=== PATIENT | female | born 1995 | race Caucasian/White ===

== ENCOUNTER 2018-10-11 10:00 | Emergency (ER) | payer BC ==
[2018-10-11 10:13] VITALS: BP 107/60
--- NOTE | 2018-10-11 10:45 | UC ---
Throat Pain/Nasal Russell HPI - HPI Summary HPI Summary: 22-year-old female presents with complaints of sinus pressure, nasal congestion , runny nose, postnasal drip, right ear fullness, and sore throat since yesterday. Denies fever, chills, dysphagia, cough, chest pain, shortness of breath, abdominal pain, nausea, or vomiting. - History of Current Complaint Chief Complaint: UCRespiratory Stated Complaint: SINUS COMPLAINT Time Seen by Provider: 10/11/18 10:39 Hx Obtained From: Patient Hx Last Menstrual Period: 09/10/18 Pain Intensity: 3 - Allergies/Home Medications Allergies/Adverse Reactions: Allergies Allergy/AdvReac Type Severity Reaction Status Date / Time amoxicillin Allergy Rash Verified 10/11/18 10:14 hydrocortisone Allergy Facial Verified 10/11/18 10:14 Redness/Flushing neomycin Allergy Facial Verified 10/11/18 10:14 Redness/Flushing polymyxin B Allergy Facial Verified 10/11/18 10:14 Redness/Flushing PMH/Surg Hx/FS Hx/Imm Hx Previously Healthy: Yes - Denies significant PMH - Surgical History Surgical History: None - Family History Known Family History: Positive: Non-Contributory - Social History Occupation: Student Lives: Dormitory/Roommates Alcohol Use: None Substance Use Type: None Smoking Status (MU): Never Smoked Tobacco - Immunization History Vaccination Up to Date: Yes Review of Systems All Other Systems Reviewed And Are Negative: Yes Constitutional: Negative: Fever, Chills Skin: Negative: Rash Eyes: Negative: Drainage, Eye Redness ENT: Positive: Sore Throat, Ear Ache, Nasal Discharge, Sinus Congestion, Sinus Pain/Tenderness Respiratory: Negative: Shortness Of Breath, Cough Cardiovascular: Negative: Palpitations, Chest Pain Gastrointestinal: Negative: Abdominal Pain, Vomiting, Nausea Genitourinary: Positive: Negative Musculoskeletal: Positive: Negative Neurological: Positive: Negative Is Patient Immunocompromised?: No Physical Exam - Summary Physical Exam Summary: GENERAL APPEARANCE: Well developed, well nourished, alert and cooperative, and appears to be in no acute distress. EYES: Conjunctiva clear. No drainage. EARS: External auditory canals and tympanic membranes clear, hearing grossly intact. NOSE: Moderate nasal congestion with mucosal erythema and edema. No nasal discharge. Right maxillary sinus tenderness. THROAT: Pharyngeal cobblestoning. No tonsilar inflammation, swelling, exudate, or lesions. Uvula midline. NECK: Neck supple, non-tender without lymphadenopathy. CARDIAC: Normal S1 and S2. No S3, S4 or murmurs. Rhythm is regular. There is no peripheral edema, cyanosis or pallor. Extremities are warm and well perfused. Capillary refill is less than 2 seconds. Peripheral pulses intact. LUNGS: Clear to auscultation without rales, rhonchi, wheezing or diminished breath sounds. ABDOMEN: Positive bowel sounds. Soft, nondistended, nontender. No guarding or rebound. No masses or hepatosplenomegally. MUSKULOSKELETAL: ROM intact to all extremities. No joint erythema or tenderness. Normal muscular development. Normal gait. SKIN: Skin normal color, texture and turgor with no lesions or eruptions. Triage Information Reviewed: Yes Vital Signs: Initial Vital Signs Temp 98 F 10/11/18 10:11 Pulse 85 10/11/18 10:11 Resp 16 10/11/18 10:11 BP 107/60 10/11/18 10:11 Pulse Ox 99 10/11/18 10:11 Vital Signs Reviewed: Yes Throat Pain/Nasal Course/Dx - Course Course Of Treatment: 22-year-old female presents with complaints of sinus pressure, nasal congestion , runny nose, postnasal drip, right ear fullness, and sore throat since yesterday. Denies fever, chills, dysphagia, cough, chest pain, shortness of breath, abdominal pain, nausea, or vomiting. Afebrile. VSS. Patient had moderate nasal congestion with mucosal erythema and edema, right maxillary sinus tenderness, pharyngeal cobblestoning without tonsilar inflammation, swelling, exudate, or lesions, and otherwise unremarkable exam. Recommending symptomatic treatment for a viral upper respiratory infection. She is to follow -up with her primary care provider in 5-7 days if symptoms are not improving. Anticipatory guidance and warning symptoms were reviewed with the patient. Verbalizes understanding and agrees with plan of care. - Differential Dx/Diagnosis Differential Diagnosis/HQI/PQRI: Influenza, Sinusitis, URI Provider Diagnosis: Viral URI Discharge ED - Sign-Out/Discharge Documenting (check all that apply): Patient Departure All imaging exams completed and their final reports reviewed: No Studies - Discharge Plan Condition: Stable Disposition: HOME Patient Education Materials: Upper Respiratory Infection (ED) Forms: *Work Release Referrals: Kun Minor MD [Primary Care Provider] - 5 Days Additional Instructions: Your history and exam are consistent with a viral upper respiratory infection. Viral infections do not respond to antibiotics and are limited to the treatment of symptoms. Viral infections typically run their course in 7-10 days. Drink plenty of fluids to avoid dehydration especially if you are running any fever. Use a saline rinse kit such as Neti Pot or NeilMed at least twice a day to help thin secretions and promote drainage of the sinuses. Use fluticasone (Flonase) nasal spray 2 sprays each nostril once daily. Use an over the counter decongestant such as Sudafed according to directions to help with the congestion. Take over the counter acetaminophen (Tylenol) or ibuprofen (Advil, Motrin) according to directions as needed for pain or fever. Use salt water gargles several times a day if you have a sore throat. You may also use Chloraseptic spray or Cepacol lonzenges according to directions which contain a numbing medication and can provide some temporary relief from your sore throat. Follow up with your primary care provider in 5-7 days if symptoms persist. Seek immediate medical attention in the emergency room if you have fever greater than 100.5 F despite taking acetaminophen or ibuprofen, have chest pain , difficulty breathing, are unable to swallow, or have any worsening of symptoms. - Billing Disposition and Condition Condition: STABLE Disposition: Home
== END 2018-10-11 11:01 | disposition home or self-care (01) ==
LOC: UCEAST 10:00
DX: J06.9 Acute upper respiratory infection, unspecified (principal)
CPT/HCPCS: 99211; G0463

== ENCOUNTER 2018-11-05 15:59 | Emergency (ER) | payer BC ==
[2018-11-05] MEDS ORDERED: NS 0.9% 1000 ML** 1,000 ML IV ONE (16:09)
--- NOTE | 2018-11-05 16:19 | ED ---
Syncope/Near Syncope - HPI Summary HPI Summary: This patient is a 23 year old female brought in by EMS presenting to [facility] with a chief complaint of syncope. The patient states she was sitting down when she had a heart rate of 180 BPM on her smart watch and had a syncopal episode when she arrived to a local clinic. She states she was unresponsive for 2-3 minutes. She reports shortness of breath just prior to the episode. She states this has happened a couple times before but not within the last year. She states she drove 2 hours on both Monday and Monday. She also recently drove for a 9 hour trip. She states she is not in any pain. She states her last menstrual period was 6 weeks ago and that she is 2 weeks late. - History Of Current Complaint Chief Complaint: EDSyncope Time Seen by Provider: 11/05/18 16:08 Hx Obtained From: Patient Onset/Duration: Sudden Onset, Lasting Minutes Context: Witnessed Alleviating Factor(s): Spontaneous Resolution Associated Signs And Symptoms: Palpitations, Shortness Of Breath - Allergies/Home Medications Allergies/Adverse Reactions: Allergies Allergy/AdvReac Type Severity Reaction Status Date / Time amoxicillin Allergy Rash Verified 11/05/18 16:10 hydrocortisone Allergy Facial Verified 11/05/18 16:10 Redness/Flushing neomycin Allergy Facial Verified 11/05/18 16:10 Redness/Flushing polymyxin B Allergy Facial Verified 11/05/18 16:10 Redness/Flushing PMH/Surg Hx/FS Hx/Imm Hx Endocrine/Hematology History: Denies: Hx Diabetes Cardiovascular History: Denies: Hx Coronary Artery Disease Infectious Disease History: No Infectious Disease History: Denies: Hx Clostridium Difficile, Hx Hepatitis, Hx Human Immunodeficiency Virus (HIV), Hx of Known/Suspected MRSA, Hx Shingles, Hx Tuberculosis, Hx Known/ Suspected VRE, Hx Known/Suspected VRSA, History Other Infectious Disease, Traveled Outside the [place] in Last 30 Days - Family History Known Family History: Positive: Cardiac Disease, Other - Cancer - Social History Alcohol Use: None Substance Use Type: Reports: None Smoking Status (MU): Never Smoked Tobacco Review of Systems Positive: Palpitations - tachycardia Positive: Shortness Of Breath Positive: Syncope All Other Systems Reviewed And Are Negative: Yes Physical Exam - Summary Physical Exam Summary: VITAL SIGNS: Reviewed. GENERAL: Patient is a well-developed and nourished FEMALE who is lying comfortable in the stretcher. Patient is not in any acute respiratory distress. HEAD AND FACE: No signs of trauma. No ecchymosis, hematomas or skull depressions. No sinus tenderness. EYES: PERRLA, EOMI x 2, No injected conjunctiva, no nystagmus. EARS: Hearing grossly intact. Ear canals and tympanic membranes are within normal limits. MOUTH: Oropharynx within normal limits. NECK: Supple, trachea is midline, no adenopathy, no JVD, no carotid bruit, no c- spine tenderness, neck with full ROM. CHEST: Symmetric, no tenderness at palpation. LUNGS: Clear to auscultation bilaterally. No wheezing or crackles. CVS: Tachycardic, regular rhythm, S1 and S2 present, no murmurs or gallops appreciated. ABDOMEN: Soft, non-tender. No signs of distention. No rebound, no guarding, and no masses palpated. Bowel sounds are normal. EXTREMITIES: FROM in all major joints, no edema, no cyanosis or clubbing. NEURO: Alert and oriented x 3. No acute neurological deficits. Speech is normal and follows commands. SKIN: Dry and warm. Triage Information Reviewed: Yes Vital Signs On Initial Exam: Initial Vitals Temp Pulse Resp BP Pulse Ox 98.9 F 119 16 139/79 100 11/05/18 16:05 11/05/18 16:05 11/05/18 16:05 11/05/18 16:05 11/05/18 16:05 Vital Signs Reviewed: Yes Diagnostics - Vital Signs Vital Signs Temp Pulse Resp BP Pulse Ox 11/05/18 16:05 98.9 F 119 16 139/79 100 - Laboratory Result Diagrams: 11/05/18 16:34 11/05/18 16:34 Lab Statement: Any lab studies that have been ordered have been reviewed, and results considered in the medical decision making process. - Radiology CXR Radiology Interpretation Completed By: ED Physician Summary of Radiographic Findings: No acute process. Pending official radiologist report. - EKG 1626 Cardiac Rate: Tachycardia - 105 BPM EKG Rhythm: Sinus Tachycardia Summary of EKG Findings: No ST elevations, no delta waves. ED Physician has reviewed and interpreted this report. Course/Dx Assessment/Plan: This patient is a 23 year old female brought in by EMS presenting to [facility] with a chief complaint of syncope. The patient states she was sitting down when she had a heart rate of 180 BPM on her smartwatch and had a syncopal episode when she arrived at a local clinic. She states she was unresponsive for 2-3 minutes. She reports shortness of breath just prior to the episode. She states this has happened a couple times before but not within the last year. She states she. drove 2 hours on both Monday and Monday. She also recently drove for a 9 hour trip. She states she is not in any pain. She states her last menstrual period was 6 weeks ago and that she is 2 weeks late. EKG: sinus tachycardia without delta waves, no other arrhythmia was seen. Blood work without any significant abnormality. D-dimer negative. CXR: No acute pathology. Blood work without any significant abnormality except for glucose of 116 and magnesium 1.8.Beta hCG is negative. Urine toxicology positive for cannabinoids. At this point I discussed my physical exam and findings with the patient and she agrees to be admitted. I also discussed my physical exam findings with Dr. Luis and she agrees for the patient to her services. Before the patient was admitted the patient is refusing. The patient was signing AGAINST MEDICAL ADVICE. I extensively discussed with the patient the benefits and risk of leaving AMA. I also discussed the alternatives to leaving AMA, however, the patient still insist to leave the hospital AMA. The patient is clinically sober, free from distracting injury, appears to have intact insight and judgment and reason and in my opinion has the capacity to make decisions. Patient has full capacity and is cognitively intact. The patient presents with HR of 180, syncope episode, I have explained that I am concerned with these symptoms and may represent a fatal arrhythmia. The patient verbalizes understanding of my concerns. I have also explained the results of the labs and even though they are normal. The primary nurse and the charge nurse also strongly recommended that the patient should not leave AMA. Patient understands the risks of leaving AMA, which includes but is not restricted to . Patient signed the AMA form. Patient was also advised to return to ED if he changes his mind or if the symptoms worsen or other symptoms appear. Patient understands and agrees. Again, I discussed all the findings and test results with the patient. Patient was instructed to return to the emergency room immediately if any of the symptoms return or worsen. Plan of care was discussed with the patient and understands and agrees. All questions were answered at patient satisfaction. There were no further complaints or concerns. Patient signed AMA and he was discharged AMA. - Diagnoses Provider Diagnoses: Syncope - Physician Notifications Discussed Care of Patient With: Domitila Figueroaan Time Discussed With Above Provider: 18:53 Instructed by Provider To: Admit As Inpatient Discharge ED - Sign-Out/Discharge Documenting (check all that apply): Patient Departure - AMA Patient Received Moderate/Deep Sedation with Procedure: No - Discharge Plan Condition: Stable Disposition: AGAINST MEDICAL ADVICE Referrals: Kun Minor MD [Medical Doctor] - - Billing Disposition and Condition Condition: STABLE Disposition: Against Medical Advice - Attestation Statements Document Initiated by Leena: Yes Documenting Scribe: Akash Hinojosa Provider For Whom Leena is Documenting (Include Credential): Master Quesada MD Scribe Attestation: Akash Rand scribed for Master Quesada MD on 11/05/18 at 2158. Scribe Documentation Reviewed: Yes Provider Attestation: The documentation as recorded by the scribAkash diego accurately reflects the service I personally performed and the decisions made by , Master Quesada MD Status of Scribe Document: Viewed
[2018-11-05 16:47] LABS: ABS Basophils 0.1 10^3/ul (0-0.2); ABS Eosinophils 0.1 10^3/ul (0-0.6); ABS Lymphocytes 1.7 10^3/ul (1.0-4.8); ABS Monocytes 0.8 10^3/ul (0-0.8); Eosinophil % 0.9 %; Hematocrit 36 % (35-47); Lymphocyte % 17.7 %; Mean Corpuscular HGB Conc 34 g/dL (31-36); Mean Corpuscular Hemoglobin 30 pg (27-31); Mean Corpuscular Volume 88 fL (80-97); Platelet Count 397 10^3/uL (150-450); Red Blood Count 4.05 10^6 /uL (3.70-4.87); Red Cell Distribution Width 13 % (10-15); White Blood Count 9.6 10^3/uL (3.5-10.8)
[2018-11-05 17:00] LABS: Urine Appearance Clear; Urine Bilirubin Negative (Negative); Urine Blood Negative (Negative); Urine Color Straw; Urine Glucose Negative (Negative); Urine Ketones Negative (Negative); Urine Nitrite Negative (Negative); Urine Protein Negative (Negative); Urine Specific Gravity 1.013 (1.010-1.030); Urine Urobilinogen Negative (Negative)
[2018-11-05 17:17] LABS: ALT 17 U/L (7-52); AST 15 U/L (13-39); Albumin 4.1 g/dL (3.2-5.2); Albumin/Globulin Ratio 1.3 (1-3); Alkaline Phosphatase 53 U/L (34-104); Anion Gap 7 mmol/L (2-11); BUN/Creatinine Ratio 22.2 (8-20); Blood Urea Nitrogen 14 mg/dL (6-24); CO2 Carbon Dioxide 25 mmol/L (22-32); Calcium 8.9 mg/dL (8.6-10.3); Chloride 107 mmol/L (101-111); Creatine Kinase 121 U/L (10-223); EGFR African American 144.3 (>60); EGFR Non-African American 119.3 (>60); Globulin 3.1 g/dL (2-4); Glucose 116 mg/dL (70-100); Magnesium 1.8 mg/dL (1.9-2.7); Potassium 3.5 mmol/L (3.5-5.0); Sodium 139 mmol/L (135-145); Total Protein 7.2 g/dL (6.4-8.9)
[2018-11-05 17:24] LABS: Alcohol < 10 mg/dL (<10); TSH (Thyroid Stimulating Horm) 1.34 mcIU/mL (0.34-5.60)
[2018-11-05 17:26] LABS: Urine Benzodiazepine Screen None Detected (None Detect); Urine Opiates Screen None Detected (None Detect)
[2018-11-05 18:13] LABS: HCG Pregnancy < 0.60 mIU/mL
[2018-11-05] MEDS ORDERED: Magnesium Oxide TAB* 400 MG PO ONE (19:22)
[2018-11-05 19:35] VITALS: BP 123/73
== END 2018-11-05 19:33 | disposition left against medical advice (07) ==
LOC: ED 15:59
DX: R55 Syncope and collapse (principal); R00.0 Tachycardia, unspecified; R00.1 Bradycardia, unspecified; Z88.0 Allergy status to penicillin
CPT/HCPCS: 36415; 71046; 80053; 80307; 80320; 81003; 82550; 83605; 83735; 83880; 84443; 84484; 84702; 85025; 85379; 93005; 99283; G0480

== ENCOUNTER 2019-02-03 14:35 | Emergency (ER) | payer BC ==
[2019-02-03 14:57] VITALS: BP 104/58
--- NOTE | 2019-02-03 15:06 | UC ---
Respiratory Complaint HPI - HPI Summary HPI Summary: 23 yo female with cough x >3 weeks getting progressively worse no fever no CP or SOB has had to use inhalers for bronchitis in past no myalgias some nasal congestion and post nasal drip - History of Current Complaint Chief Complaint: UCGeneralIllness Stated Complaint: chest CONGESTION Time Seen by Provider: 02/03/19 15:00 Hx Obtained From: Patient Hx Last Menstrual Period: 01/25/19 Onset/Duration: Gradual Onset Timing: Constant Severity Initially: Mild Severity Currently: Mild Pain Intensity: 1 Pain Scale Used: 0-10 Numeric Aggravating Factors: Nothing Alleviating Factors: Nothing Associated Signs And Symptoms: Negative: Dyspnea, Fever, Chills, Pleuritic Chest Pain, Wheezing, Hemoptysis, Dizziness, Calf Pain, Calf Swelling, Edema, URI, Nasal Congestion, Hoarseness, Sinus Discomfort - Allergies/Home Medications Allergies/Adverse Reactions: Allergies Allergy/AdvReac Type Severity Reaction Status Date / Time amoxicillin Allergy Rash Verified 11/05/18 16:10 hydrocortisone Allergy Facial Verified 02/03/19 14:57 Redness/Flushing neomycin Allergy Facial Verified 02/03/19 14:57 Redness/Flushing polymyxin B Allergy Facial Verified 02/03/19 14:57 Redness/Flushing PMH/Surg Hx/FS Hx/Imm Hx Previously Healthy: Yes - Surgical History Surgical History: None - Family History Known Family History: Positive: Cardiac Disease, Other - Cancer, Non- Contributory - Social History Alcohol Use: Rare Substance Use Type: None Smoking Status (MU): Never Smoked Tobacco - Immunization History Vaccination Up to Date: Yes Review of Systems All Other Systems Reviewed And Are Negative: Yes Constitutional: Positive: Negative Skin: Positive: Negative Eyes: Positive: Negative ENT: Positive: Nasal Discharge, Sinus Congestion Respiratory: Positive: Cough Cardiovascular: Positive: Negative Gastrointestinal: Positive: Negative Genitourinary: Positive: Negative Motor: Positive: Negative Neurovascular: Positive: Negative Musculoskeletal: Positive: Negative Neurological: Positive: Negative Psychological: Positive: Negative Physical Exam Triage Information Reviewed: Yes Appearance: Well-Appearing, No Pain Distress, Well-Nourished Vital Signs: Initial Vital Signs Temp 98.2 F 02/03/19 14:54 Pulse 81 02/03/19 14:54 Resp 19 02/03/19 14:54 BP 104/58 02/03/19 14:54 Pulse Ox 99 12/29/19 14:54 Vital Signs Reviewed: Yes Eyes: Positive: Conjunctiva Clear ENT: Positive: Hearing grossly normal, Uvula midline. Negative: Nasal congestion, Nasal drainage, Trismus, Muffled voice, Hoarse voice, Sinus tenderness Neck: Positive: Supple, Nontender, No Lymphadenopathy Respiratory: Positive: Lungs clear, Normal breath sounds, No respiratory distress, No accessory muscle use Cardiovascular: Positive: RRR Abdomen Description: Positive: Nontender Bowel Sounds: Positive: Present Musculoskeletal: Positive: ROM Intact, No Edema Neurological: Positive: Alert Psychological Exam: Normal Skin Exam: Normal Respiratory Course/Dx - Differential Dx/Diagnosis Provider Diagnosis: Bronchitis Discharge ED - Sign-Out/Discharge Documenting (check all that apply): Patient Departure All imaging exams completed and their final reports reviewed: No Studies - Discharge Plan Condition: Stable Disposition: HOME Prescriptions: Azithromycin TAB* [Zithromax TAB*] 250 mg PO DAILY #6 tab Benzonatate CAP* [Tessalon CAP*] 100 - 200 mg PO TID PRN #28 cap PRN Reason: Cough Patient Education Materials: Acute Bronchitis (ED) Forms: *Work Release Referrals: No Primary Care Phys,NOPCP [Primary Care Provider] - [facility] [place]] - If Needed Additional Instructions: recheck for new or worsening symptoms recheck in 4 -7 days if not better - Billing Disposition and Condition Condition: STABLE Disposition: Home
== END 2019-02-03 15:18 | disposition home or self-care (01) ==
LOC: UCEAST 14:35
DX: J40 Bronchitis, not specified as acute or chronic (principal); Z88.0 Allergy status to penicillin; Z88.1 Allergy status to other antibiotic agents; Z88.8 Allergy status to other drugs, medicaments and biological substances
CPT/HCPCS: 99212; G0463

== ENCOUNTER 2019-02-05 17:45 | Emergency (ER) | payer BC ==
--- NOTE | 2019-02-05 17:47 | UC ---
Abdominal Pain Female HPI - HPI Summary HPI Summary: 23 yo female presents with vomiting. She tells me that she is being treated for a sinus infection/bronchitis with zpak. She has taken this for 2 days. This morning she woke up around 0200 and vomited once. She then went back to bed. All day has had mild nausea and vomited one more time this morning. She is drinking water well and has had chicken soup today. She has had zpak in the past and has not had any issues with vomiting. She denies any pain. No fever or chills. No dysuria or back pain. - History of Current Complaint Stated Complaint: VOMITING Time Seen by Provider: 02/05/19 17:47 Hx Obtained From: Patient Hx Last Menstrual Period: 01/25/19 Onset/Duration: Sudden Onset Severity Currently: None Allergies/Adverse Reactions: Allergies Allergy/AdvReac Type Severity Reaction Status Date / Time amoxicillin Allergy Rash Verified 02/05/19 17:56 hydrocortisone Allergy Facial Verified 02/05/19 17:56 Redness/Flushing neomycin Allergy Facial Verified 02/05/19 17:56 Redness/Flushing polymyxin B Allergy Facial Verified 02/05/19 17:56 Redness/Flushing PMH/Surg Hx/FS Hx/Imm Hx - Additional Past Medical History Additional PMH: None - Surgical History Surgical History: None - Family History Known Family History: Positive: Cardiac Disease, Other - Cancer, Non- Contributory - Social History Lives: With Family Alcohol Use: Rare Substance Use Type: None Smoking Status (MU): Never Smoked Tobacco - Immunization History Vaccination Up to Date: Yes Review of Systems All Other Systems Reviewed And Are Negative: No Constitutional: Positive: Negative Skin: Positive: Negative Eyes: Positive: Negative ENT: Positive: Negative Respiratory: Positive: Negative Cardiovascular: Positive: Negative Gastrointestinal: Positive: Vomiting, Nausea Genitourinary: Positive: Negative Neurovascular: Positive: Negative Neurological: Positive: Negative Psychological: Positive: Negative Physical Exam - Summary Physical Exam Summary: GENERAL: NAD. WDWN. No pain distress. Drinking water SKIN: No rashes, sores, or open wounds. HEENT: Head: AT/NC Eyes: PERRLA. EOM intact. Conjunctiva clear without inflammation or discharge. Ears: Hearing grossly normal. TMs intact, no bulging, erythema, or edema. Nose: Nasal mucosa pink and moist. NTTP maxillary and frontal sinus. Throat: Posterior oropharynx without exudates, erythema, or tonsillar enlargement. Uvula midline. NECK: Supple. Nontender. No lymphadenopathy. CHEST: Mild wheezing throughout. No accessory muscle use. Breathing comfortably and in no distress. CV: RRR. Pulses intact. Brisk cap refill. ABDOMEN: Soft. NTTP. No distention or guarding. No CVA tenderness. Bowel sounds present NEURO: Alert. PSYCH: Age appropriate behavior. Triage Information Reviewed: Yes Vital Signs: Vital Signs: Temp Pulse Resp BP Pulse Ox 98.4 F 98 16 110/74 99 02/05/19 17:51 02/05/19 17:51 02/05/19 17:51 02/05/19 17:51 02/05/19 17:51 Laboratory Tests Laboratory Tests 02/05/19 02/05/19 02/05/19 18:06 18:33 18:36 POC Urine Color Yellow POC Urine Clarity Clear POC Urine pH 8.5 POC Ur Specif [place] 1.020 POC Urine Protein 1+ A POC Ur Glucose (UA) Negative POC Urine Ketones 1+ A POC Urine Blood Trace-intact POC Urine Nitrite Negative POC Urine Bilirubin Negative POC Urine Urobilinogen 1.0 POC U Leukocyte Esteras Negative POC Ur Test Negative Influenza A (Rapid) Negative Influenza B (Rapid) Negative Vital Signs Reviewed: Yes Abd Pain Female Course/Dx - Course Course Of Treatment: POC flu negative. She is asking for a note for work today 02/05/19 and tomorrow 02/06/19. She was given zofran in the clinic for her nausea. - Differential Dx/Diagnosis Provider Diagnosis: Vomiting Discharge ED - Sign-Out/Discharge Documenting (check all that apply): Patient Departure All imaging exams completed and their final reports reviewed: No Studies - Discharge Plan Condition: Stable Disposition: HOME Prescriptions: Ondansetron ODT TAB* [Zofran 4 MG Odt TAB*] 4 mg PO Q8H PRN #9 tab.odt PRN Reason: Vomiting Patient Education Materials: Acute Nausea and Vomiting (ED) Forms: *Work Release Referrals: No Primary Care Phys,NOPCP [Primary Care Provider] - Additional Instructions: Your flu test and urine were negative/normal in the clinic today. Please take the zofran as directed if needed for nausea or vomiting. If you develop a fever, abdominal pain, or worsening symptoms - please go to the ER immediately - Billing Disposition and Condition Condition: STABLE Disposition: Home
[2019-02-05 17:56] VITALS: BP 110/74
[2019-02-05 18:19] LABS: Influenza A Molecular NEGATIVE (Negative); Influenza B Molecular NEGATIVE (Negative)
[2019-02-05] MEDS ORDERED: Ondansetron ODT TAB* 4 MG SL ONE (18:33)
== END 2019-02-05 18:44 | disposition home or self-care (01) ==
LOC: UCEAST 17:45
DX: R11.10 Vomiting, unspecified (principal); R11.0 Nausea; Z88.0 Allergy status to penicillin; Z88.1 Allergy status to other antibiotic agents; Z88.8 Allergy status to other drugs, medicaments and biological substances
CPT/HCPCS: 81003; 84702; 99212; A9270-GY; G0463

== ENCOUNTER 2021-03-13 19:15 | Inpatient (IN) ==
[2021-03-13 20:50] LABS: ABS Basophils 0.1 10^3/ul (0-0.2); ABS Lymphocytes 2.8 10^3/ul (1.0-4.8); ABS Monocytes 0.6 10^3/ul (0-0.8); ABS Neutrophils 5.2 10^3/ul (1.5-7.7); Eosinophil % 0.5 %; Hematocrit 38 % (35-47); Hemoglobin 12.9 g/dL (12.0-16.0); Lymphocyte % 32.3 %; Mean Corpuscular HGB Conc 34 g/dL (31-36); Mean Corpuscular Hemoglobin 30 pg (27-31); Mean Corpuscular Volume 90 fL (80-97); Mean Platelet Volume 8.1 fL (7.4-10.4); Platelet Count 367 10^3/uL (150-450); Red Blood Count 4.28 10^6 /uL (3.70-4.87); Red Cell Distribution Width 14 % (10-15); White Blood Count 8.8 10^3/uL (3.5-10.8)
[2021-03-13 21:08] LABS: ALT 12 U/L (7-52); AST 15 U/L (13-39); Albumin 4.6 g/dL (3.2-5.2); Albumin/Globulin Ratio 1.5 (1-3); Alkaline Phosphatase 59 U/L (35-149); Anion Gap 9 mmol/L (2-11); Blood Urea Nitrogen 14 mg/dL (6-24); CO2 Carbon Dioxide 24 mmol/L (22-32); Calcium 10.1 mg/dL (8.6-10.3); Chloride 104 mmol/L (101-111); Globulin 3.1 g/dL (2-4); Glucose 96 mg/dL (70-100); Potassium 3.4 mmol/L (3.5-5.0); Sodium 137 mmol/L (135-145); Total Protein 7.7 g/dL (6.4-8.9); eGFR CKD-EPI 114.7 (>60)
[2021-03-13 21:09] LABS: Acetaminophen < 15 mcg/mL; Alcohol, S < 13 mg/dL (<13); Salicylate < 2.50 mg/dL (<30)
[2021-03-13 21:22] LABS: Urine Appearance Cloudy; Urine Bilirubin Negative (Negative); Urine Blood Negative (Negative); Urine Color Yellow; Urine Glucose Negative (Negative); Urine Ketones 1+ (Negative); Urine Nitrite Negative (Negative); Urine Protein 1+(30 mg/dL) (Negative); Urine Specific Gravity 1.034 (1.002-1.030); Urine Urobilinogen Negative (Negative)
[2021-03-13 21:23] LABS: TSH Ultra Thyroid Stim Horm 4.68 mcIU/mL (0.34-5.60)
[2021-03-13 21:32] LABS: Urine Bacteria 1+ (Absent); Urine Red Blood Cell 1+(3-5/hpf) (Absent); Urine Squamous Epithelial Cell Present (Absent); Urine White Blood Cell Trace(0-5/hpf) (Absent)
[2021-03-13 21:34] LABS: Urine Benzodiazepine Screen None Detected (None Detect); Urine Cannabinoids Screen Presumptive Positive (None Detect); Urine Opiates Screen None Detected (None Detect)
[2021-03-14] MEDS ORDERED: Potassium Chlor 20 meq TAB.ER PO ONE (00:08)
[2021-03-14] MEDS ORDERED: Al Hydrox/Mg Hydrox/Simet LIQ 30 ML UDC PO PRN (13:12)
[2021-03-14] MEDS: Vitamin THERAPEUTIC TAB PO SCH (18:32)
[2021-03-15 08:17] LABS: HDL Cholesterol 69.5 mg/dL
[2021-03-15] MEDS: Vitamin THERAPEUTIC TAB PO SCH (10:54)
[2021-03-16] MEDS: Vitamin THERAPEUTIC TAB PO SCH (07:34)
[2021-03-16 08:08] VITALS: BP 120/62
== END 2021-03-16 15:42 | disposition home or self-care (01) | DRG 751 ==
LOC: ED 19:15 → BSU 03-14 10:32
PROVIDERS: ADMIT Psychiatry & Neurology Psychiatry; ATTEND Psychiatry & Neurology Psychiatry